=== PATIENT | female | born 1990 | race Caucasian/White ===

== ENCOUNTER 2018-08-31 07:02 | Emergency (ER) | payer OTHER ==
[~2018-08-31] VITALS: Ht 162.6 cm; Wt 100.0 kg
[2018-08-31 07:06] VITALS: BP 133/69; PULSE 84; RESP 16; Ht 162.6 cm; Wt 100.0 kg
[2018-08-31] MEDS ORDERED: IPRATROPIUM (NEB) 0.5 MG/2.5 ML AMP NEB STA (08:54)
[2018-08-31] MEDS ORDERED: DEXAMETHASONE 10 MG/ML 1 ML INJ IM STA (08:54)
[2018-08-31] MEDS ORDERED: ALBUTEROL 0.083% (NEB) 2.5 MG/3 ML AMP NEB STA (08:54)
[2018-08-31] MEDS ORDERED: ALBU8.5H8 INH (09:16)
[2018-08-31] MEDS ORDERED: PROM5SYR2 PO (09:16)
[2018-08-31] MEDS ORDERED: ACYC800T5 PO (09:16)
[2018-08-31] MEDS ORDERED: ALBU2.5V3 NEB (09:16)
--- NOTE | 2018-08-31 09:18 | ERD ---
ER Documentation Chief Complaint Chief Complaint pt is bib self with cough, congestion and face spasm x few days, fever HPI 27-year-old female is here complaining of cough and congestion that began yesterday. Also low-grade fever. She also states that this morning she had some twitching on the left side of her face and she felt like left side of her face and eyes were drooping and she was scared she could be having a stroke. She has a history of asthma as a child. ROS All systems reviewed and are negative except as per history of present illness. Medications Home Meds Active Scripts Promethazine HCl/Codeine (Prometh-Codein 6.25-10 mg/5 ml) 5 Ml Syrup, 5 ML PO Q6, #200 ML Prov:TRIPP CAMPOVERDE PA-C 08/31/18 Albuterol Sulfate* (Proair HFA*) 8.5 Gm Hfa.aer.ad, 2 PUFF INH Q4, #1 INHALER Prov:TRIPP CAMPOVERDE PA-C 08/31/18 Albuterol Sulfate* (Albuterol Sulfate* Neb) 0.083%-3 Ml Neb, 2.5 MG NEB Q4 PRN for SHORTNESS OF BREATH, #30 EA Prov:TRIPP CAMPOVERDE PA-C 08/31/18 Acyclovir* (Zovirax*) 800 Mg Tablet, 800 MG PO 5 TIMES DAILY for 7 Days, TAB Prov:TRIPP CAMPOVERDE PA-C 08/31/18 Allergies Allergies: Coded Allergies: No Known Allergy (Unverified , 08/31/18) PMhx/Soc Hx Miscellaneous Medical Probl: Yes (migrane) Hx Alcohol Use: No Hx Substance Use: Yes (marijuana) Hx Tobacco Use: No Smoking Status: Current every day smoker FmHx Family History: No diabetes Physical Exam Vitals Vital Signs Date Temp Pulse Resp B/P (MAP) Pulse Ox O2 O2 Flow FiO2 Time Delivery Rate 08/31/18 80 19 96 21 09:02 08/31/18 100.6 84 16 133/69 97 07:06 (90) Physical Exam INITIAL VITAL SIGNS: Reviewed by me GENERAL: Awake, alert and oriented x 4, well appearing, nontoxic, speaking in full sentences. No acute distress HEAD: Atraumatic NECK: Supple. No masses. Full range of motion. No meningismus. No midline tenderness. EYES: EOMI. PERRL. THROAT: No tonilar erythema or edema. No exudates. Uvula midline. No kissing tonsils. RESPIRATORY: Clear to auscultation bilaterally. Symmetric chest wall rise. No wheezing or rales. No accessory muscle use. CV: Regular rate and rhythm. No murmurs, rubs, or gallops. NEUROLOGIC: Normal mental status and speech. Face is symmetric. Moves all extremities equally. Motor and sensory distally intact. Normal coordination. Ambulates with a strong steady gait. Results 24 hrs Current Medications Medications Dose Sig/Ricardo Start Time Status Last (Trade) Ordered Route PRN Stop Time Admin Dose Reason Admin Albuterol 5 mg ONCE STAT 08/31/18 DC 08/31/18 (Proventil NEB 08:54 09:02 0.083% (Neb)) 08/31/18 08:55 Ipratropium 0.5 mg ONCE STAT 08/31/18 DC 08/31/18 Hyampom NEB 08:54 09:02 (Atrovent 08/31/18 08:55 0.02% (Neb)) 10 mg ONCE STAT 08/31/18 DC 08/31/18 Dexamethasone IM 08:54 09:00 (Decadron) 08/31/18 08:55 Procedures/MDM Patient has what is likely a viral URI. She was given Decadron and a breathing treatment with improvement. She is also complaining complaining of left-sided facial droop and twitching on the left side of her face. This appears to have resolved now as her neurological exam is normal and her face is now symmetrical. However she did show me a video she took on her phone where he did look like she may have had Mckinnon's palsy. Therefore I will give her prescription for acyclovir. Low suspicion for ischemic stroke. Prescriptions for albuterol inhaler and nebulizing solution given as well as cough suppressant. Patient counseled regarding my diagnostic impression and care plan. Prior to discharge all questions answered. Pt agrees with treatment plan and understands strict return precautions. Pt is instructed to follow up with primary care provider within 24-48 hours. Precautionary instructions provided including instructions to return to the ER if not improving or for any worsening or changing symptoms or concerns. Departure Diagnosis: Primary Impression: Mckinnon's palsy Additional Impression: Upper respiratory infection Condition: Stable Patient Instructions: Mckinnon's Palsy, Preventing Common Respiratory Infections Additional Instructions: Call your primary care doctor TOMORROW for an appointment during the next 1-2 days.See the doctor sooner or return here if your condition worsens before your appointment time. TRIPP CAMPOVERDE PA-C Aug 31, 2018 09:18
== END 2018-08-31 10:02 | disposition home or self-care (01) ==
LOC: FTE 07:02
DX: G51.0 Bell's palsy (principal); F17.210 Nicotine dependence, cigarettes, uncomplicated; J06.9 Acute upper respiratory infection, unspecified
CPT/HCPCS: 94664; J1100; Z7610; 96372